=== PATIENT | female | born 1970 | race Caucasian/White ===

== ENCOUNTER 2024-05-23 14:18 | Outpatient (CLI) | payer OTHER, SELFPAY ==
--- NOTE | ~2024-05-23 | XR_ITS ---
XR knee LT 3V Ordering provider: Martha Elena APRN History: . M25.569 - Pain in unspecified knee . Comparison: None. FINDINGS: BONES: No acute fracture or dislocation. Healing fracture in the proximal left fibula is noted. JOINT SPACES: Normal. SOFT TISSUES: Normal. IMPRESSION: No acute osseous abnormality left knee. Reviewed, dictated and finalized at location A.
--- NOTE | ~2024-05-23 | XR_ITS ---
XR knee RT 3V Ordering provider: Martha Elena APRN History: . M25.569 - Pain in unspecified knee . Comparison: None. FINDINGS: BONES: No acute fracture or dislocation. JOINT SPACES: Normal. SOFT TISSUES: Normal. IMPRESSION: No acute osseous abnormality right knee. Reviewed, dictated and finalized at location A.
--- OUTSIDE RECORDS SUMMARY | 2024-05-23 16:10 | XMS_ITS | Clinical Summary ---
Author Organization [facility] Address [address] [place] [address] Phone Care Team Providers Care Ladle Liner Helper Name Role Phone Sandra Ashford APRN, CNP Primary Care Provide r Allergies Active Allergy Reactions Criticality Noted Date Comments Codeine Other (see Comments) 10/17/2023 Penicillins Other (see Comments) 10/17/2023 Medications No known medications Social History Tobacco Use Types Packs/Day Years Used Date Smoking Tobacco: Never Assessed Comments No Sex and Gender Information Value Date Recorded Sex Assigned at Not on file Legal Sex Female 8:21 PM CDT Gender Identity Not on file Sexual Orientation Not on file Last Filed Vital Signs Vital Sign Reading Time Taken Comments Blood Pressure 172/69 10/17/2023 7:45 PM CDT Pulse 98 10/17/2023 7:45 PM CDT Temperature 37.6 C (99.6 F) 10/17/2023 7:45 PM CDT Respiratory Rate 23 10/17/2023 7:45 PM CDT Oxygen Saturation 99% 10/17/2023 7:45 PM CDT Inhaled Oxygen Concentration - - Weight 63.5 kg (140 lb) 10/17/2023 11:24 AM CDT Height 160 cm (5' 3 ) 10/17/2023 11:24 AM CDT Body Mass Index 24.8 10/17/2023 11:24 AM CDT Plan of Treatment Health Maintenance Due Date Last Done Comments Hepatitis C Virus (HCV) Screening 1972 Mammogram 1972 TdaP Immunization 1972 Hepatitis B Immunization (1 of 3 - 19+ 3-dose series) 1991 Pap Smear 1993 Cervical Cancer Screening (CCS) 2002 HPV/Cotest 2002 Colonoscopy 2017 Colorectal Cancer Screening 2017 Cologuard 2022 Immunochemical Fecal Occult Blood 2022 Pneumococcal Immunization (5 0+ years) (1 of 1 - PCV) 2022 Zoster Immunization (1 of 2) 2022 Influenza Immunization (#1) 2023 SARS-COV-2 Immunization (1 - season) 2023 Respiratory Syncytial Virus (RSV) Immunization (Adult) (1 - 1-dose 75+ series) 2047 Meningococcal Immunization (ACWY) Aged Out No longer eligible based on patient's age to complete this topic Pneumococcal Immunization Combined Aged Out No longer eligible based on patient's age to complete this topic Rotavirus Immunization Aged Out No lo nger eligible based on patient's age to complete this topic Insurance MEDICAID [employer] Care Teams Ladle Liner Helper Relationship Specialty Start Date End Date Sandra Ashford, LITHOGRAPHIC PLATE MAKER APPRENTICE, SOFTWARE RELIABILITY ENGINEER [address] [place] [address] PCP - General Advanced Practice Nurse 10/17/23
--- OUTSIDE RECORDS SUMMARY | 2024-05-23 16:11 | XMS_ITS | Clinical Summary ---
Author Organization [facility] [address] Address [address] [place] [address] 5[address] [place] [address] Care Team Providers Care Microfabrication Engineer Manager Name Role Phone Sandra Ashford NP Primary Care Provider [phone] Allergies Active Allergy Reactions Criticality Noted Date Comments Codeine Hives,Hallucinations Medium 10/09/2023 Penicillins Anaphylaxis High 10/09/2023 Medications No known medications Active Problems Problem Noted Date Diagnosed Date Chronic pain of both knees 10/09/2023 Assessment & Plan (10/09/2023 3:12 PM CDT): Chronic, not well controlled Fell two years ago; never got knees looked at Pain is progressing Takes Tylenol arthritis with minimal to no relief Xrays ordered Family history of systemic lupus erythematosus 0 10/09/2023 Assessment & Plan (10/09/2023 3:11 PM CDT): Mom from Lupus Grandma also had lupus Labs ordered Elevated blood pressure read ing in office without diagnosis of hypertension 10/09/2023 Assessment & Plan (10/09/2023 3:17 PM CDT): Initial 164/84 Recheck 156/78 Home BPs run in 120s/60s Continue to monitor BP at home and follow up if elevated Immunizations Immunization Administration Dates Next Due Influenza, Unspecified 01/12/2023(Deferr ed: Patient Refused),12/11/2021(Deferred: Patient Refused) Surgical History Surgery Date Site/Laterality Comments SECTION 03/13/1999 - 03/12/2000 SECTION 03/13/1995 - 03/12/1996 SECTION 03/13/1992 - 03/12/1993 Family History Medical History Relation Name Comments Cancer Father Cancer Maternal Grandfather Lupus Maternal Grandmother Lupus Mother Cancer Paternal Grandfather Relation Name Status Comments Father Maternal Grandfather Maternal Grandmother Mother Paternal Grandfather Social History Tobacco Use Types Packs/Day Years Used Date Smoking Tobacco: Former Cigarettes Q uit: 1998 Tobacco Cessation:Counseling Given: Not Answered [facility] Utilities Answer Date Recorded In the past 12 months has e [employer], [employer], oil, or water W[employer] threatened to shut off services in your home? No 10/09/2023 Humiliation, Afraid, Rape, and Kick questionnair e Answer Date Recorded Within the last year, have y ou been afraid of your partner or ex-partner? No 10/09/2023 Within the last year, have y ou been humiliated or emotionally abused in other ways by your partner or ex-partner? No Within the last year, have y ou been kicked, hit, slapped, or otherwise physically hurt by your partner or ex-partner? No 10/09/2023 Within the last year, have y ou been raped or forced to have any kind of sexual activity by your partner or ex-partner? No 10/09/2023 Social Connection and Isolat ion Panel [NHANES] Answer Date Recorded In a typical week, how many times do you talk on the phone with family, friends, or neighbors? More than three times a week 10/09/2023 How often do you get togethe r with friends or relatives? More than three times a week 10/09/2023 Attends Zoroastrianism Services Not on file 10/08 Do you belong to any clubs o r organizations such as yazidi groups, unions, fraternal or athletic groups, or school groups? No 10/09/2023 How often do you attend meet ings of the clubs or organizations you belong to? Never 10/09/2023 Are you , , di vorced, , never , or living with a partner? 10/09/2023 AUDIT-C Answer Date Recorded Q1: How often do you have a drink containing alc ohol? 2-4 times a month 10/09/2023 Q2: How many drinks containi ng alcohol do you have on a typical day when you are drinking? 1 or 2 10/09/2023 Q3: How often do you have si x or more drinks on one occasion? Never 10/09/2023 Overall Financial Resource Strain (CARDIA) Answe r Date Recorded How hard is it for you to pa y for the very basics like food, housing, medical care, and heating? Not hard at all 10/09/2023 PHQ-2 Answer Date Recorded PHQ-2 Total Score (If total score is 3 or more points, staff should administer the PHQ-9) 0 10/09/2023 [facility] of Occupat ional [facility] - Occupational Stress Questionnaire Answer Date Recorded Do you feel stress - tense, restless, nervous, or anxious, or unable to sleep at night because your mind is troubled all the time - these days? Only a little 10/09/2023 Exercise Vital Sign Answer Date Recorde d On average, how many days pe r week do you engage in moderate to strenuous exercise (like a brisk walk)? 3 days 10/09/2023 On average, how many minutes do you engage in exercise at this level? 30 min 10/09/2023 Hunger Vital Sign Answer Date Recorded Within the past 12 months, y ou worried that your food would run out before you got the money to buy more. Never true 10/09/19 24 Within the past 12 months, t he food you bought just didn't last and you didn't have money to get more. Never true 10/09/2023 PRAPARE - Transportation Answer Date Re corded In the past 12 months, has l ack of transportation kept you from medical appointments or from getting medications? No 09/11 In the past 12 months, has l ack of transportation kept you from meetings, work, or from getting things needed for daily living? No 10/09/2023 Housing Stability Vital Sign Answer Etienne e Recorded In the last 12 months, was t here a time when you were not able to pay the mortgage or rent on time? No 10/09/2023 In the past 12 months, how m any times have you moved where you were living? 0 10/09/2023 At any time in the [facility], were you homeless or living in a senior care (including now)? No 10/09/2023 Personal Safety Answer Date Recorded Have you ever been in or are you currently in a harmful physical or emotional relationship or is someone making you feel afraid or unsafe? Denies 10/11/2023 Comments No Sex and Gender Information Value Date Recorded Sex Assigned at Not on file Legal Sex Female 9:47 AM BOAT JOINER HELPER Gender Identity Not on file Sexual Orientation Not on file Obstetrics History Last Filed Vital Signs Vital Sign Reading Time Taken Comments Blood Pressure 158/58 10/11/2023 4:00 PM CDT Pulse 101 10/11/2023 4:00 PM CDT Temperature 36.7 C (98.1 F) 10/11/2023 12:49 PM CDT Respiratory Rate 18 10/11/2023 3:08 PM CDT Oxygen Saturation 96% 10/11/2023 4:00 PM CDT Inhaled Oxygen Concentration - - Weight 59 kg (130 lb) 10/11/2023 12:49 PM CDT Height 160 cm (5' 3 ) 10/11/2023 12:49 PM CDT Body Mass Index 23.03 10/11/2023 12:49 PM CDT Plan of Treatment Health Maintenance Due Date Last Done Comments Breast Cancer Screening-Mammogram 1972 DTaP/Tdap/Td Vaccine (1 - Tdap) 1983 Regular Well Visit/Exam 18-64 1990 Zoster Vaccine (1 of 2) 2022 Influenza Vaccine (#1) 2023 Depression Screening 10/08/2024 10/09/2023 Cervical Cancer Screening 10/11/2024 Po stponed from 1972 (Patient declined, but will receive in the future) Colon Cancer Screening-Colonoscopy 10/11/2024 Postponed from (Patient declined, but will receive in the future) Hepatitis B Screening Completed 10/09/2023 Hepatitis C Screening Completed 10/09/2023 Pneumococcal vaccine <65 Aged Out No longer eligible based on patient's age to complete this topic Procedures Procedure Name Priority Date/Time Associated Diagnosis Comments HEPATITIS C ANTIBODY Routine 10/09/2023 3:15 PM CDT Encounter for hepatitis C screening test for low risk patient from Last 3 Months or Most Recently Relevant to Health Maintenance Results * Hepatitis C antibody Blood (10/09/2023 3:15 PM CDT) Hep C Ab Nonreactive Nonreactive Comment: Interpretive Data Nonreactive: Antibodies to HCV not detected. Does NOT exclude the possibility of recent exposure to HCV. Equivocal: Equivocal for HCV antibodies. Supplemental molecular testing will be automatically performed to determine infection status in accordance with current CDC screening recommendations. Reactive: Positive for HCV antibodies. This may represent current or past HCV infection. Supplemental molecular testing will be automatically performed to determine current infection status in accordance with current CDC screening recommendations. Interpretive data was last revised on 2019. Testing performed by: [facility], [address] [place] [address]., [id number] Blood 10/09/2023 3:15 PM CDT 10/09/2023 8:25 PM CDT us Sandra Ashford NP LAB MICROBIOLOGY - GENERAL ORDER HAYDEN Final Result [facility] Department [place] [address] from Last 3 Months or Most Recently Relevant to Health Maintenance Insurance Care Teams Microfabrication Engineer Manager Relationship Specialty Start Date End Date Sandra Ashford NP PCP - General Family Medicine 10/09/23
--- OUTSIDE RECORDS SUMMARY | 2024-05-23 16:11 | XMS_ITS | Referral Summary ---
Author Organization [facility] [address] Address [address] [place] [address] 5th [place] [address] Care Team Providers Care Line Crewman Name Role Phone Sandra Ashford NP Primary Care Provider [phone] Allergies Active Allergy Reactions Criticality Noted Date [...] Unspecified 01/12/2023(Deferr ed: Patient Refused),12/11/2021(Deferred: Patient Refused) Social History Tobacco Use Types Packs/Day Years Used Date Smoking Tobacco: Former Cigarettes Q uit: 1998 Tobacco Cessation:Counseling Given: Not Answered [facility] Utilities Answer Date Recorded In the past 12 months has th e electric, [employer], oil, or water [employer] threatened to shut off services in your [...] than three times a week 10/09/2023 Attends Jew Services Not on file 10/08 Do you belong to any clubs o r organizations such as episcopal groups, unions, fraternal or athletic groups, or [...] staff should administer the PHQ-9) 0 10/09/2023 [facility] of Occupat ional [facility] - Occupational Stress Questionnaire Answer Date Recorded [...] any time in the past 12 m [facility], were you homeless or living in a long-term (including now)? No 10/09/2023 Personal Safety Answer Date Recorded Have you ever been in or are you currently in a harmful physical or emotional relationship or is someone making you feel afraid or unsafe? Denies 10/11/2023 Comments No Sex and Gender Information Value Date Recorded Sex Assigned at Not on file Legal Sex Female 9:47 AM DIRECTOR OF QUANTITATIVE RESEARCH Gender Identity Not on file Sexual Orientation [...] 10/11/2023 12:49 PM CDT Plan of Treatment Not on file Procedures Procedure Name Priority Date/Time Associated Diagnosis [...] last revised on 2019. Testing performed by: [facility], [address] [place] [address], [place]., [address] Blood 10/09/2023 3:15 PM CDT 10/09/2023 8:25 PM CDT us Sandra Ashford NP LAB MICROBIOLOGY - GENERAL ORDER HAYDEN Final Result [facility] Department [place] [address] from Last 3 Months or Most Recently Relevant to Health Maintenance [place] [address] Care Teams Line Crewman Relationship Specialty Start Date End Date Sandra Ashford NP PCP - General Family Medicine 10/09/23
[2024-05-23 19:14] LABS: Basophils Absolute Auto 0.1 K/mm3 (0.0-0.1); Basophils Percent Auto 1.4 % (0.2-1.2); Eosinophils Absolute Auto 0.1 K/mm3 (0-0.3); Eosinophils Percent Auto 1.2 % (0-4.4); Hematocrit 32.4 % (37.0-47.0); Hemoglobin 10.1 g/dL (12.0-15.0); Immature Granulocyte Absolute 0.02 K/mm3 (0.00-0.031); Immature Granulocyte Percent A 0.4 % (0-0.5); Lymphocytes Absolute Auto 1.09 K/mm3 (0.9-3.2); Lymphocytes Percent Auto 21.4 % (18.3-44.2); Mean Corpuscular HGB Conc 31.2 g/dl (32-36); Mean Corpuscular Hemoglobin 29.8 pg (26-34); Mean Corpuscular Volume 95.6 fl (80-100); Mean Platelet Volume 10.1 fl (7.4-10.4); Monocytes Absolute Auto 0.4 K/mm3 (0.1-0.6); Monocytes Percent Auto 8.3 % (2.6-8.5); Neutrophils Absolute Auto 3.4 K/mm3 (1.3-6.7); Neutrophils Percent Auto 67.3 % (45.5-73.1); Platelet Count Result 140 k/mm3 (150-375); Red Blood Count 3.39 M/mm3 (4.2-5.4); Red Cell Distribution Width 21.9 % (11.5-14.5); White Blood Count 5.1 K/mm3 (4.5-10.0)
[2024-05-23 19:17] LABS: Add Urine Microscopic? YES; Appearance Urine Cloudy (Clear); Bacteria Urine 4+ /hpf; Bilirubin Urine Negative (Negative); Blood Urine Negative (Negative); Budding Yeast Urine Present /hpf; Color Urine Dark Yellow (Yellow); Glucose Urine UA Negative (Negative); Ketones Urine Trace mg/dL (Negative); Leukocyte Esterase Ur 2+ LEU/UL (Negative); Mucus Urine Present /lpf; Need Manual Microscopic Reviewed; Nitrate Urine Negative (Negative); Protein Urine Negative (Negative); Specific Grav Ur 1.021 (1.001-1.035); Squamous Epithelial Cell Urine Many /hpf (Few); WBC Urine 0-5 /hpf (0-3)
[2024-05-23 19:18] LABS: Alanine Aminotransferase 40 U/L (6-35); Albumin Level 4.8 g/dL (3.5-5.1); Alkaline Phosphatase 235 U/L (38-126); Anion Gap 13 mmol/L (4-12); Aspartate Amino Transferase 54 U/L (14-36); Bilirubin,Total 1.5 mg/dL (0.2-1.3); Blood Urea Nitrogen 14 mg/dL (7-17); Calcium 9.6 mg/dL (8.4-10.2); Carbon Dioxide 26 mmol/L (22-30); Chloride 99 mmol/L (98-107); Cholesterol 158 mg/dL (0-200); Estimated Glomerular Filt Rate > 60; Glucose 109 mg/dL (65-110); HDL Direct 88 mg/dL; Potassium 3.8 mmol/L (3.4-5.0); Sodium 138 mmol/L (137-145); Triglycerides 67 mg/dL (<150)
[2024-05-23 19:29] LABS: LDL Cholesterol Direct 49 mg/dL
[2024-05-23 19:39] LABS: Erythrocyte Sedimentation Rate 21 mm/hr (0-20)
[2024-05-23 20:10] LABS: Free T4 Free Thyroxine 1.23 ng/dL (0.78-2.19); Vitamin D 25 Hydroxy 16.9 ng/mL
[2024-05-23 20:24] LABS: Hemoglobin A1C 5.1 % (<5.7)
[2024-05-25 03:23] LABS: ANA Cascade Screen NEGATIVE (NEGATIVE)
[2024-05-27 12:33] LABS: Lupus dRVVT Screen 40 sec (< OR = 45); PTT-LA Screen 42 sec (< OR = 40)
== END 2024-05-23 14:19 | disposition home or self-care (01) ==
LOC: ANHBWCLAB 14:20
PROVIDERS: PCP Nurse Practitioner Adult Health; Visit Provider Nurse Practitioner Adult Health
DX: M25.50 Pain in unspecified joint (principal); M25.569 Pain in unspecified knee; R53.83 Other fatigue; Z86.2 Personal history of diseases of the blood and blood-forming organs and certain disorders involving the immune mechanism; Z13.9 Encounter for screening, unspecified
CPT/HCPCS: 36415; 73562; 80053; 80061; 81001; 82306; 83036; 84439; 84443; 84550; 85025; 85613; 85652; 85730; 86038; 86225; 86235; 86364

== ENCOUNTER 2024-07-09 13:25 | Outpatient (CLI) | payer OTHER, SELFPAY ==
--- NOTE | ~2024-07-09 | XR_ITS ---
EXAMINATION: XR chest 2V Exam Date/Time: 07/09/2024 13:25 CDT HISTORY: cough, sob x 1 week Comparison: None. RESULT: Lines, tubes, and devices: None. Lungs and pleura: Clear. Cardiomediastinal silhouette: Unremarkable. Calcified nodes. Other: No acute osseous or upper abdominal finding. IMPRESSION: No acute cardiopulmonary process. Reviewed, dictated and finalized at location K.
--- OUTSIDE RECORDS SUMMARY | 2024-07-09 14:38 | XMS_ITS | Referral Summary ---
Author Organization [facility] [address] Address [address] [facility] 5th [place] [address] Care Team Providers Care Custodian Blood Bank Name Role Phone Martha Elena NP Primary Care Provider [phone] Encounters Date Type Department Care Team Description 07/05/2024 3:22 PM CDT - 07/05/2024 11:59 PM CDT Hospital Encounter [facility] [address] [place] [address] Abnormal levels of other serum enzymes Discharge Disposition: Discharge to home or self care from Last 3 Months Allergies Active Allergy Reactions Criticality Noted Date [...] uit: 1998 Tobacco Cessation:Counseling Given: Not Answered [facility] Utilities Answer Date Recorded In the past 12 months has e [place], gas, oil, or water company threatened to shut off services in your [...] than three times a week 10/09/2023 Attends Jain Services Not on file 10/08 Do you belong to any clubs o r organizations such as faith groups, unions, fraternal or athletic groups, or [...] staff should administer the PHQ-9) 0 10/09/20[facility] - Occupational Stress Questionnaire Answer Date [...] things needed for daily living? No 10/09/2023 PHQ-9 Answer Date Recorded PHQ-9 Total Score 0 10/09/2023 Housing Stability Vital Sign Answer Etienne e Recorded In the last 12 months, was t here a time when you were not able to pay the mortgage or rent on time? No 10/09/2023 In the past 12 months, how m any times have you moved where you were living? 0 10/09/2023 At any time in the past 12 m [facility], were you homeless or living in a group home (including now)? No 10/09/2023 Personal Safety Answer Date Recorded Have you ever been in or are you currently in a harmful physical or emotional relationship or is someone making you feel afraid or unsafe? Denies 10/11/2023 Comments No Sex and Gender Information Value Date Recorded Sex Assigned at Not on file Legal Sex Female 9:47 AM SUPERVISING LIBRARIAN Gender Identity Not on file Sexual Orientation [...] Procedure Name Priority Date/Time Associated Diagnosis Comments US ABDOMEN LIMITED Schedule Routine, Read Routine (OP Routine) 07/05/2024 3:58 PM CDT Abnormal levels of other serum enzymes HEPATITIS C ANTIBODY Routine 10/09/2023 3:15 PM CDT Encounter for hepatitis C screening test for low risk patient from Last 3 Months or Most Recently Relevant to Health Maintenance Results * US Abdomen Limited (07/05/2024 3:58 PM CDT) Anatomical Region Laterality Modality Abdomen N/A Ultrasound 07/08/2024 7:26 AM CDT Narrative 07/08/2024 7:28 AM CDT EXAM DESCRIPTION: US ABDOMEN LIMITED REASON FOR STUDY: Abnormal levels of other serum enzymes TECHNIQUE: Ultrasound of the right upper quadrant of the abdomen was performed with grayscale and color doppler. COMPARISON: None FINDINGS: PANCREAS: Visualized portions of the pancreas are within normal limits. Portions of the pancreatic body and tail are obscured due to bowel gas. LIVER: Borderline enlarged measuring 21 cm. Increased echogenicity. Normal echotexture. No definite liver lesion is seen. GALLBLADDER: Normal in size. Borderline wall thickening measuring 4 mm. 7 x 7 x 4 mm echogenic nodule is noted along the wall. Is noted to be non mobile. No pericholecystic fluid. Negative sonographic Velarde sign as per the performing gm/svp global publisher business. BILIARY: There is no intrahepatic or extrahepatic biliary ductal dilatation. Common bile duct measures 3 mm in diameter. RIGHT KIDNEY: Normal in size. Measures 9.9 cm. No hydronephrosis. IMPRESSION: 1. Mild hepatomegaly with steatosis. 2. Indeterminate 7 mm echogenic nodule along the gallbladder wall. Is uncertain whether this represents a stone or polyp. There is borderline gallbladder wall thickening without sonographic evidence of acute cholecystitis. Follow-up ultrasound is recommended in 3-6 months. THIS IS AN ELECTRONICALLY VERIFIED FINAL REPORT 07/08/2024 7:28 AM - Electronically signed by Howard Porter M.D. AG: HERNÁN Report ID: [id number] Reading Location: [id number] Procedure Note Howard Porter MD - 07/08/2024 EXAM DESCRIPTION: US ABDOMEN LIMITED REASON FOR STUDY: Abnormal levels of other serum enzymes TECHNIQUE: Ultrasound of the right upper quadrant of the abdomen wasperformed with grayscale and color doppler. COMPARISON: None FINDINGS: PANCREAS: Visualized portions of the pancreas are within normal limits. Portions of the pancreatic body and tail are obscured due to bowel gas. LIVER: Borderline enlarged measuring 21 cm. Increased echogenicity.Normal echotexture. No definite liver lesion is seen. GALLBLADDER: Normal in size. Borderline wall thickening measuring 4 mm.7 x 7 x 4 mm echogenic nodule is noted along the wall. Is noted to be non mobile. No pericholecystic fluid. Negative sonographic Velarde sign asper the performing gm/svp global publisher business. BILIARY: There is no intrahepatic or extrahepatic biliary ductaldilatation. Common bile duct measures 3 mm in diameter. RIGHT KIDNEY: Normal in size. Measures 9.9 cm. No hydronephrosis. IMPRESSION: 1. Mild hepatomegaly with steatosis. 2. Indeterminate 7 mm echogenic nodule along the gallbladder wall. Is uncertain whether this represents a stone or polyp. There is borderline gallbladder wall thickening without sonographic evidence of acute cholecystitis. Follow-up ultrasound is recommended in 3-6 months. THIS IS AN ELECTRONICALLY VERIFIED FINAL REPORT 07/08/2024 7:28 AM - Electronically signed by Howard Porter M.D. AG: AG Report ID: [id number] Reading Location: [place] [address] us Martha Elena NP IMG US PROCEDURES Final Result * Hepatitis C antibody Blood (10/09/2023 3:15 [...] last revised on 2019. Testing performed by: [facility], [address] [place] [address], [place]., [address] Blood 10/09/2023 3:15 PM CDT 10/09/2023 8:25 PM CDT us Sandra Ashford NP LAB MICROBIOLOGY - GENERAL ORDER HAYDEN Final Result Performing Organization Address City/State/[facility] Co de Phone Number [facility] [place] [facility] Department [place] [address] from Last 3 Months or Most Recently Relevant to Health Maintenance [place] [address] [place] [address] Care Teams Custodian Blood Bank Relationship Specialty Start Date End Date Martha Elena NP [facility] [place] [address] PCP - General Nurse Practitioner 06/14/24
--- OUTSIDE RECORDS SUMMARY | 2024-07-09 14:38 | XMS_ITS | Clinical Summary ---
Author Organization [facility] [address] [facility] 5th [place] [address] Care Team Providers Care Sharepoint Trainer Name Role Phone Martha Elena NP Primary Care Provider [phone] Allergies Active Allergy Reactions Criticality Noted Date [...] at home and follow up if elevated Encounters Date Type Department Care Team Description 07/05/2024 3:22 PM CDT - 07/05/2024 11:59 PM CDT Hospital Encounter [facility] [address] [place] [address] Abnormal levels of other serum enzymes Discharge Disposition: Discharge to home or self care from Last 3 Months Immunizations Immunization Administration Dates Next Due Influenza, [...] uit: 1998 Tobacco Cessation:Counseling Given: Not Answered [facility] [employer] Answer Date Recorded In the past 12 months has e vi[employer]ood gas, oil, or water [employer] threatened to shut off services in your [...] than three times a week 10/09/2023 Attends Latter-Day Services Not on file 10/08 Do you belong to any clubs o r organizations such as temple groups, unions, fraternal or athletic groups, or [...] staff should administer the PHQ-9) 0 10/09/2023 [facility] - Occupational Stress Questionnaire Answer Date Recorded [...] any time in the past 12 m [facility], were you homeless or living in a [facility] (including now)? No 10/09/2023 Personal Safety Answer Date Recorded Have you ever been in or are you currently in a harmful physical or emotional relationship or is someone making you feel afraid or unsafe? Denies 10/11/2023 Comments No Sex and Gender Information Value Date Recorded Sex Assigned at Not on file Legal Sex Female 9:47 AM CORRECTIONS CASEWORKER Gender Identity Not on file Sexual Orientation [...] 1990 Zoster Vaccine (1 of 2) 2022 Depression Screening 10/08/2024 10/09/2023 Cervical Cancer Screening 10/11/2024 Po stponed from 1972 (Patient declined, but will receive in the future) Colon Cancer Screening-Colonoscopy 10/11/2024 Postponed from (Patient declined, but will receive in the future) Influenza Vaccine (Season Ended) 2024 Hepatitis B Screening Completed 10/09/2023 Hepatitis C [...] sonographic Velarde sign as per the performing machine cementer. BILIARY: There is no intrahepatic or extrahepatic [...] Howard Porter M.D. AG: HERNÁN Report ID: [id number] Reading Location: [id number] Procedure Note Howard Porter MD - 07/08/2024 [...] Negative sonographic Velarde sign asper the performing machine cementer. BILIARY: There is no intrahepatic or extrahepatic [...] Howard Porter M.D. AG: AG Report ID: [id number] Reading Location: [id number] Martha Elena NP [facility] US PROCEDURES Final Result * Hepatitis C [...] last revised on 2019. Testing performed by: [facility], [address] [place] [address], [place]., [address] Blood 10/09/2023 3:15 PM CDT 10/09/2023 8:25 PM CDT us Sandra Ashford NP LAB MICROBIOLOGY - GENERAL ORDER HAYDEN Final Result [facility] ([place]) [address] [facility] Department [place] [address] from Last 3 Months or Most Recently Relevant to Health Maintenance Insurance Care Teams Sharepoint Trainer Relationship Specialty Start Date End Date Martha Elena NP [facility] [place] [address] PCP - General Nurse Practitioner 06/14/24
--- OUTSIDE RECORDS SUMMARY | 2024-07-09 14:38 | XMS_ITS | Clinical Summary ---
Author Organization [facility] Address [address] [place] [address] Phone Care Team Providers Care Funeral Home Director Name Role Phone Sandra Ashford APRN, CNP [...] Immunization (#1) 2023 SARS-COV-2 Immunization (1 - 2023- season) 2023 Respiratory Syncytial Virus (RSV) Immunization (Adult) (1 - 1-dose 75+ series) 2047 Meningococcal Immunization (ACWY) Aged Out No longer eligible based on patient's age to complete this topic Rotavirus Immunization Aged Out No lo nger eligible based on patient's age to complete this topic Insurance MEDICAID [employer] Care Teams Funeral Home Director Relationship Specialty Start Date End Date Sandra Ashford, LUMBER STACKER, ORDER DISPATCHER [place] [address] [place] [address] PCP - General Advanced Practice Nurse 10/17/23
[2024-07-09 20:46] LABS: Iron 71 ug/dL (37-170)
[2024-07-09 20:55] LABS: Percent Iron Saturation 15 % (20-50)
== END 2024-07-09 13:26 | disposition home or self-care (01) ==
LOC: ANHBWCLAB 13:25
PROVIDERS: PCP Nurse Practitioner Adult Health; Visit Provider Nurse Practitioner Adult Health
DX: R05.9 Cough, unspecified (principal); R06.02 Shortness of breath; Z86.2 Personal history of diseases of the blood and blood-forming organs and certain disorders involving the immune mechanism
CPT/HCPCS: 36415; 71046; 82728; 83540; 83550

== ENCOUNTER 2025-03-04 11:56 | Outpatient (CLI) | payer OTHER, SELFPAY ==
--- NOTE | ~2025-03-04 | XR_ITS ---
XR wrist LT 2V, XR hand LT 2V 03/04/2025 12:21 (accession [id number]), 03/04/2025 12:22 (accession [id number]) Indication: Left wrist and hand pain Procedure: 2 views left wrist and 2 views left Comparison: No prior studies for comparison. Findings: No fracture, subluxation or dislocation. There is atherosclerosis. No erosive changes. No foreign bodies. Impression: 1: No significant bone or joint abnormality. Reviewed, dictated and finalized at location O. F INTERNAL AUDITOR Impression: 1: No significant bone or joint abnormality. Impression: 1: No significant bone or joint abnormality.
--- OUTSIDE RECORDS SUMMARY | 2025-03-04 12:06 | XMS_ITS | Clinical Summary ---
Author Organization [facility] Address [address] [place] [address] Phone Care Team Providers Care Warehouse Associate Name Role Phone Sandra Ashford APRN, CNP [...] 11:24 AM CDT Height 160 cm (5' 3) 10/17/2023 11:24 AM CDT Body Mass Index 24.8 10/17/2023 11:24 AM CDT Plan of Treatment Health Maintenance Due Date Last Done Comments Hepatitis C Virus (HCV) Screening 1972 Mammogram 1972 TdaP Immunization 1972 Hepatitis B Immunization (1 of 3 - 19+ 3-dose series) 1991 Pap Smear 1993 Cervical Cancer Screening (CCS) 2002 HPV/Cotest 2002 Cologuard 2017 Colonoscopy 2017 Colorectal Cancer Screening 2017 Immunochemical Fecal Occult Blood 2017 Pneumococcal Immunization (5 0+ years) (1 of 1 - PCV) 2022 Zoster Immunization (1 of 2) 2022 Influenza Immunization (#1) 2024 SARS-COV-2 Immunization (1 - 2024- season) 2024 Respiratory Syncytial Virus (RSV) Immunization (Adult) (1 - 1-dose 75+ series) 2047 Human Papillomavirus (HPV) Immunization (No Doses Required) Completed Meningococcal Immunization (ACWY) Aged Out No longer eligible based on patient's age to complete this topic Rotavirus Immunization Aged Out No lo nger eligible based on patient's age to complete this topic Insurance MEDICAID [employer] Care Teams Warehouse Associate Relationship Specialty Start Date End Date Sandra Ashford, BREAKFAST ATTENDANT, TABLET MAKING MACHINE OPERATOR [place] [address] [place] [address] PCP - General Advanced Practice Nurse 10/17/23
--- OUTSIDE RECORDS SUMMARY | 2025-03-04 12:06 | XMS_ITS | Clinical Summary ---
Author Organization [facility] [address] [facility] [address] [place] [address] Care Team Providers Care Return Checker Name Role Phone Martha lEena NP Primary Care Provider [phone] Allergies Active Allergy Reactions Criticality Noted Date [...] Tobacco Cessation:Counseling Given: Not Answered [facility] Utilities Answer Date Recorded In the past 12 months has e [employer], [employer], oil, or water [employer] threatened to shut off services in your [...] or ex-partner? No 10/09/2023 Social Connection and Isolation Panel Answer Date Recorded In a typical week, how many times do you talk on the phone with family, friends, or neighbors? More than three times a week 10/09/2023 How often do you get togethe r with friends or relatives? More than three times a week 10/09/2023 Attends Nondenominational Services Not on file 10/08 Do you belong to any clubs o r organizations such as islam groups, unions, fraternal or athletic groups, or [...] staff should administer the PHQ-9) 0 10/09/2023 [facility] - Occupational Stress Questionnaire Answer Date [...] any time in the past 12 m [facility], were you homeless or living in a [place] [facility] [place] [facility] (including now)? No 10/09/2023 Personal Safety Answer Date Recorded Have you ever been in or are you currently in a harmful physical or emotional relationship or is someone making you feel afraid or unsafe? Denies 10/11/2023 Comments No Sex and Gender Information Value Date Recorded Sex Assigned at Not on file Legal Sex Female 9:47 AM INSTRUCTIONAL SYSTEMS DESIGN CONSULTANT Gender Identity Not on file Sexual Orientation [...] 12:49 PM CDT Height 160 cm (5' 3) 10/11/2023 12:49 PM CDT Body Mass Index 23.03 10/11/2023 12:49 PM CDT Plan of Treatment Health Maintenance Due Date Last Done Comments Breast Cancer Screening-Mammogram 1972 Cervical Cancer Screening 1972 Colon Cancer Screening-Colonoscopy 1972 DTaP/Tdap/Td Vaccine (1 - Tdap) 1983 Regular Well Visit/Exam 18-64 1990 Zoster Vaccine (1 of 2) 2022 Depression Screening 10/08/2024 10/09/2023 Influenza Vaccine (#1) 2024 Hepatitis B Screening Completed 10/09/2023 Hepatitis [...] last revised on 2019. Testing performed by: [facility], [address] [place] [address]., [address] Blood 10/09/2023 3:15 PM CDT 10/09/2023 8:25 PM CDT us Sandra Ashford NP LAB MICROBIOLOGY - GENERAL ORDER HAYDEN Final Result [facility] ([place]) [address] [facility] Department [place] [address] from Last 3 Months or Most Recently Relevant to Health Maintenance [place] [place] [address] Care Teams Return Checker Relationship Specialty Start Date End Date Martha Elena NP [facility] [place] [address] PCP - General Nurse Practitioner 06/14/24
== END 2025-03-04 11:57 | disposition home or self-care (01) ==
LOC: ANHBWCLAB 11:57
PROVIDERS: PCP Nurse Practitioner Adult Health; Visit Provider Nurse Practitioner Adult Health
DX: M25.532 Pain in left wrist (principal); I25.10 Atherosclerotic heart disease of native coronary artery without angina pectoris; E55.9 Vitamin D deficiency, unspecified; Z86.2 Personal history of diseases of the blood and blood-forming organs and certain disorders involving the immune mechanism
CPT/HCPCS: 73100; 73120